=== PATIENT | male | born 1985 | race American Indian/Alaskan Native ===

== ENCOUNTER 2019-01-04 16:11 | Emergency (ER) | payer OTHER ==
[2019-01-04 16:43] VITALS: BP 143/97
--- NOTE | 2019-01-04 16:44 | Emergency Department Report ---
Chief Complaint: Headache Stated Complaint: ALBER Time Seen by Provider: 01/04/19 16:41 - HPI History of Present Illness: This is a 33 y.o. male that presents with a headache x 2 days. Patient states he took Motrin with no improvement of symptoms. States he never had a headache like this one before. - ROS Review of Systems: headache - Exam Vital Signs: Vital Signs 01/04/19 16:41 Temperature 98 F Pulse Rate 96 H Respiratory 18 Rate Blood Pressure 143/97 O2 Sat by Pulse 98 Oximetry MSE screening note: Focused history and physical exam performed. Due to findings the following was ordered: CT of head Fast track for further evaluation. ED Disposition for MSE Condition: Stable
--- NOTE | 2019-01-04 17:58 | Cat Scan Report ---
PROCEDURE: CT HEAD/BRAIN WO CON TECHNIQUE: Spiral imaging of the brain was obtained without IV contrast. HISTORY: headache COMPARISONS: FINDINGS: Brain: Brain density appears normal. No evidence of intracranial hemorrhage. No parenchymal hemorr ambika, mass lesions or mass effect are seen. No abnormal extra-axial fluid collects or masses are see n. Ventricles: Ventricles are normal size and are midline. Bone Windows: No evidence of skull fracture. Paranasal sinuses: Small metallic density is visualized near the right sphenoid ethmoidal recess. Thi s could represent a foreign body or possibly postsurgical change. This is visualized on axial image 1 2 series 3. There is a small nodular density anteriorly in the left maxillary sinus suggesting a muco us retention cyst or polyp. Visualized paranasal sinuses otherwise are clear. Mastoid air cells: Clear. IMPRESSION: Negative unenhanced CT scan of the brain. Metallic density region of the right sphenoethmoidal recess within the paranasal sinuses. This could represent a foreign body or possibly from previous surgery. Correlation with prior trauma history and surgical history recommended. Mild paranasal sinus disease as described. This document is electronically signed by Carter Desai MD., January 04 2019 05:55:59 PM ET
[2019-01-04] MEDS ORDERED: TORADOL PO ONE (18:00)
[2019-01-04] MEDS ORDERED: BENADRYL PO ONE (18:00)
[2019-01-04] MEDS ORDERED: REGLAN PO ONE (18:00)
[2019-01-04] MEDS ORDERED: TORADOL ONE (18:08)
[2019-01-04] MEDS ORDERED: TORADOL IM ONE (18:10)
--- NOTE | 2019-01-04 18:14 | Emergency Department Report ---
ED Headache HPI - General Chief Complaint: Headache Stated Complaint: ALBER Time Seen by Provider: 01/04/19 16:41 - History of Present Illness Initial Comments: Pt is a 33 yo male who presents to the ED with c/o left, frontal SOSA that began 2 days ago. He also has associated rhinorrhea and congestion. The patient denies any sinus pain, fever, cough, neck pain, numbness, weakness, vision changes, photophobia, or any other sx. The patient states that he took motrin for the pain without much relief. He also states that he cracked a tooth on the left lower side about 3 months ago and has some facial pain. He has not yet seen a dentist. Allergies/Adverse Reactions: Allergies No Known Allergies Allergy (Verified 01/04/19 16:41) Home Medications: Ambulatory Orders Amoxicillin/Potassium Clav [Augmentin 875-125 Tablet] 1 each PO BID 7 Days #14 tablet 01/04/19 Ibuprofen 800 mg PO Q6HR PRN #15 tablet 01/04/19 ED Review of Systems ROS: Stated complaint: ALBER Other details as noted in HPI Comment: All other systems reviewed and negative ED Past Medical Hx - Past Medical History Previous Medical History?: Yes Additional medical history: "sinuses" - Surgical History Past Surgical History?: No - Social History Smoking Status: Current Every Day Smoker Substance Use Type: None - Medications Home Medications: Home Medications Medication Instructions Recorded Confirmed Last Taken Type Amoxicillin/Potassium Clav 1 each PO BID 7 Days #14 tablet 01/04/19 Unknown Rx [Augmentin 875-125 Tablet] Ibuprofen 800 mg PO Q6HR PRN #15 tablet 01/04/19 Unknown Rx ED Physical Exam - General Limitations: No Limitations General appearance: alert, in no apparent distress - Head Head exam: Present: atraumatic, normocephalic - Eye Eye exam: Present: normal appearance - ENT ENT exam: Present: normal orophraynx, mucous membranes moist, other (crusted nasal discharge, left lower tooth is cracked with a piece missing extending into the pulp, no abscess present, no facial swelling) - Neck Neck exam: Present: normal inspection, full ROM. Absent: tenderness, meningismus, lymphadenopathy - Respiratory Respiratory exam: Present: normal lung sounds bilaterally. Absent: respiratory distress, wheezes, rales, rhonchi, stridor, chest wall tenderness, accessory muscle use, decreased breath sounds, prolonged expiratory - Cardiovascular Cardiovascular Exam: Present: regular rate, normal rhythm, normal heart sounds. Absent: systolic murmur, rubs, gallop - Neurological Exam Neurological exam: Present: alert, oriented X3, CN II-XII intact, normal gait. Absent: motor sensory deficit - Psychiatric Psychiatric exam: Present: normal affect, normal mood - Skin Skin exam: Present: warm, dry, intact ED Course Vital Signs 01/04/19 01/04/19 01/04/19 16:41 18:11 18:49 Temperature 98 F Pulse Rate 96 H 89 Respiratory 18 16 17 Rate Blood Pressure 143/97 O2 Sat by Pulse 98 100 Oximetry - Reevaluation(s) Reevaluation #1: 01/04/19 18:34 headache has completely resolved after reglan, toradol, and benadryl ED Medical Decision Making - Medical Decision Making Pt presents to the ED with c/o left frontal SOSA that began two days ago. Also has rhinorrhea and congestion. No fever, numbness, weakness, vision changes, neck pain, or any other sx. VSS, no neuro deficits. CT head performed which showed mild sinus disease and a metallic foreign body in the paranasal sinuses. Discussed with radiologist Dr. Desai who believes it was most likely done as a child where he stuck something up his nose, but should not be causing any issues. Pt denies any surgery, trauma, gunshot, etc. Will have pt follow up with ENT in the next 2-[address] head report. Will also refer pt to neurology for further migraine evaluation. Advised to follow up with primary care doctor in the next 2-3 days. Advised pt to also see a dentist [facility]. Will give pt Augmentin to cover for sinusitis and to prevent dental infection from cracked tooth. Return to the ED for any new or worsening symptoms. - Differential Diagnosis Migraine, headache, Sinusitis, Dental pain Critical care attestation.: If time is entered above; I have spent that time in minutes in the direct care of this critically ill patient, excluding procedure time. ED Disposition Clinical Impression: Cracked tooth Headache Qualifiers: Headache type: unspecified Headache chronicity pattern: acute headache Intractability: not intractable Qualified Code(s): R51 - Headache Sinusitis Qualifiers: Sinusitis location: unspecified location Chronicity: acute Recurrence: non-re current Qualified Code(s): J01.90 - Acute sinusitis, unspecified Foreign body in paranasal sinus Qualifiers: Encounter type: initial encounter Qualified Code(s): T17.0XXA - Foreign body in nasal sinus, initial encounter Disposition: TO HOME OR SELFCARE Is pt being admited?: No Does the pt Need Aspirin: No Condition: Stable Instructions: Dental Caries (ED), Sinusitis (ED), Acute Headache (ED) Additional Instructions: Follow up with ENT in 2-3 days regarding findings on CT head. Follow up with dentist [facility]. Follow up with neurology if continue to have headaches to discuss possibility of migraines. Take all medication as prescribed. Return to the emergency room for any new or worsening symptoms. Prescriptions: Amoxicillin/Potassium Clav [Augmentin 875-125 Tablet] 1 each PO BID 7 Days #14 tablet Ibuprofen 800 mg PO Q6HR PRN #15 tablet PRN Reason: Pain, Moderate (4-6) Referrals: KAITLYNN DAVALOS MD [Staff Physician] - 2-3 Days LIVIER VALDIVIA MD [Staff Physician] - 2-3 Days [facility] [Provider Group] - [facility] Time of Disposition: 18:40 Print Language: GABONESE
== END 2019-01-04 18:48 | disposition home or self-care (01) ==
LOC: ED 16:11
DX: T17.0XXA Foreign body in nasal sinus, initial encounter (principal); K03.81 Cracked tooth; J01.90 Acute sinusitis, unspecified; R51 Headache; F17.200 Nicotine dependence, unspecified, uncomplicated; X58.XXXA Exposure to other specified factors, initial encounter
CPT/HCPCS: 70450; 96372; 99283; J1885

== ENCOUNTER 2019-06-07 09:08 | Outpatient (CLI) | payer OTHER ==
--- NOTE | 2019-06-07 10:14 | XRay Report ---
Right hip, 2 views INDICATION: Right hip pain. COMPARISON: None. IMPRESSION: No acute osseous or soft tissue abnormality. No significant DJD. Right femur, 2 views INDICATION: Right leg pain. COMPARISON: None. IMPRESSION: No acute osseous or soft tissue abnormality. No significant DJD. Right knee, 3 views INDICATION: RIGHT KNEE PAIN. COMPARISON: None. IMPRESSION: No acute osseous or soft tissue abnormality. No significant DJD. Signer Name: Law Johnson Jr, MD Signed: 06/07/2019 10:09 AM Workstation Name: [id number]
== END 2019-06-07 09:09 | disposition home or self-care (01) ==
LOC: XRAY 09:08
PROVIDERS: ATTEND Internal Medicine
DX: M25.551 Pain in right hip (principal); M25.561 Pain in right knee; M79.604 Pain in right leg